=== PATIENT | female | born 1995 | race African-American/Black ===

== ENCOUNTER 2016-09-02 18:10 | Emergency (ER) | payer OTHER ==
--- NOTE | 2016-09-02 18:58 | ERRECORD ---
[facility] EMERGENCY RECORD KNOWN ALLERGIES No Known Drug Allergies (Unconfirmed) CURRENT MEDICATIONS No recorded medications PROBLEM LIST No recorded problems DIAGNOSIS (18:54 JPAR) FINAL: PRIMARY: left without being seen. PRESCRIPTION No recorded prescriptions DISPOSITION (18:54 JPAR) PATIENT: Disposition Type: Eloped, Disposition: Left Without Triage, Patient left the department. Negrete: JPAR=Paramadalberto, RN, Reyes &a-1R&a+25V*p+0X*[id number]*c202B*c15G*c2P*p-0X&a-25V&a+1R Name: Anika Jones : 1995 F21 MedRec: [id number] AcctNum: [id number] Prepared: Rigoberto Sep 02, 2016 18:56 by Interface Page 1 of 1 pMD MTDD
--- NOTE | 2016-09-02 19:01 | PICIS ---
[facility] EMERGENCY RECORD TRIAGE (ThuSep 02, 2016 18:53 JPAR) PATIENT: NAME: Anika Jones, AGE: 21, GENDER: female, : Thu1995, TIME OF GREET: ThuSep 02, 2016 18:11, PREFERRED LANGUAGE: Lao, RACE: Black or , ETHNICITY: Not or , ECODE BILLING MAP: [facility], SSN: [id number], Zip Code: [address], KG WEIGHT: 54.43, PHONE: , , , PERSON ID: [id number], [facility] TRIAGE NOTES: left without being trianged. COMPLAINT: LEFT SIDE JAW AND NECK SWELLING. ADMISSION: URGENCY: Left Before Triage, ADMISSION SOURCE: Home, TRANSPORT: CAR, BED: TRIAGE. PROVIDERS: TRIAGE NURSE: Reyes Schreiber RN. PREVIOUS VISIT ALLERGIES: No Known Drug Allergies. KNOWN ALLERGIES No Known Drug Allergies (Unconfirmed) CURRENT MEDICATIONS No recorded medications HPI GENERAL (ThuSep 03, 2016 00:45 AGRE) CHIEF COMPLAINT: Patient presents for evaluation of PATIENT LEFT WITHOUT TRIAGE. EVENTS TRANSFER: Triage to Emergency Triage. (18:53 JPAR) Removed from Emergency Triage. (18:54 JPAR) PROBLEM LIST No recorded problems DIAGNOSIS (18:54 JPAR) FINAL: PRIMARY: left without being seen. DISPOSITION (18:54 JPAR) PATIENT: Disposition Type: Eloped, Disposition: Left Without Triage, Patient left the department. PRESCRIPTION No recorded prescriptions ADMIN (ThuSep 03, 2016 00:45 AGRE) DIGITAL SIGNATURE: MD Rivera Andrea. Negrete: AGRE=MD Rivera Andrea JPAR=SABRA Schreiber, Reyes &a-1R&a+25V*p+0X*d1527I*c202B*c15G*c2P*p-0X&a-25V&a+1R Name: Anika Jones : 1995 F21 MedRec: [id number] AcctNum: [id number] Prepared: ThuSep 03, 2016 00:53 by Interface Page 1 of 1 pMD MTDD
--- NOTE | 2016-09-03 00:52 | ERRECORD ---
[facility] EMERGENCY RECORD HPI GENERAL (ThuSep 03, 2016 00:45 AGRE) CHIEF COMPLAINT: Patient presents for evaluation of PATIENT LEFT WITHOUT TRIAGE. KNOWN ALLERGIES No Known Drug Allergies (Unconfirmed) CURRENT MEDICATIONS No recorded medications PROBLEM LIST No recorded problems DIAGNOSIS (18:54 JPAR) FINAL: PRIMARY: left without being seen. PRESCRIPTION No recorded prescriptions DISPOSITION (18:54 JPAR) PATIENT: Disposition Type: Eloped, Disposition: Left Without Triage, Patient left the department. Negreet: AGRE=MD Miguel, Andrés UNDERWOOD=Candie, RN, Reyes &a-1R&a+25V*p+0X*n0035R*c202B*c15G*c2P*p-0X&a-25V&a+1R Name: Anika Jones : 1995 F21 MedRec: [id number] AcctNum: [id number] Prepared: ThuSep 03, 2016 00:46 by Interface Page 1 of 1 pMD MTDD
== END 2016-09-02 18:54 | disposition left against medical advice (07) ==
LOC: NAV ERS 18:10
DX: Z53.21 Procedure and treatment not carried out due to patient leaving prior to being seen by health care provider (principal)

== ENCOUNTER 2016-10-14 15:37 | Emergency (ER) | payer OTHER | END 2016-10-14 16:42 | disposition left against medical advice (07) | LOC: NAV ERS 15:37 | DX: Z53.21 Procedure and treatment not carried out due to patient leaving prior to being seen by health care provider (principal) ==

== ENCOUNTER 2016-10-15 10:11 | Emergency (ER) | payer OTHER | END 2016-10-15 11:00 | disposition left against medical advice (07) | LOC: NAV ERS 10:11 | DX: Z53.21 Procedure and treatment not carried out due to patient leaving prior to being seen by health care provider (principal) ==

== ENCOUNTER 2019-06-03 20:20 | Emergency (ER) | payer OTHER, SELFPAY ==
[2019-06-03 20:39] LABS: Bilirubin Small (Negative); Blood, Urine Negative (Negative); Clarity Clear (Clear); Glucose, Urine (Dipstick) Negative (Negative); Leukocyte Trace (Negative); Nitrite Negative (Negative); Protein, Urine (Dipstick) Trace mg/dL (Neg-Trace)
[2019-06-03 20:47] LABS: Specific Gravity 1.025 (1.002-1.036)
[2019-06-03] MEDS ORDERED: Ketorolac Tromethamine 30 MG/ML VIAL ONE (20:48)
[2019-06-03] MEDS ORDERED: Ondansetron PF 4 MG/2 ML Vial ONE (20:48)
[2019-06-03 20:55] LABS: Pregnancy Test - Urine (BHCG) Negative (Negative); Pregu Control Background? CLEAR/WHITE (CLR/WHITE); Pregu Control Bar Appear? YES (CONTROL BAR)
[2019-06-03 20:57] LABS: WBC/HPF 0-3 HPF (0-3)
[2019-06-03 20:58] LABS: Bacteria/HPF None Seen HPF (None Seen); Mucous/LPF 1+ LPF (<2+); RBC/HPF None Seen HPF (0-3)
[2019-06-03 21:22] LABS: ALT (SGPT) 8 U/L (8-55); AST (SGOT) 24 U/L (5-34); Albumin 4.3 g/dL (3.5-5.0); Alkaline Phosphatase 63 U/L (40-110); Anion Gap 14 mmol/L (10-20); BUN (Urea Nitrogen) 5 mg/dL (7.0-18.7); Bilirubin, Total 0.6 mg/dL (0.2-1.2); Calc. Creatinine Clearance 0 mL/min (70-130); Calcium 9.1 mg/dL (7.8-10.44); Carbon Dioxide 23 mmol/L (22-29); Chloride 106 mmol/L (98-107); Estimated GFR-MDRD Greater than 90; Globulin 2.9 g/dL (2.4-3.5); Glucose 101 mg/dL (70-105); Lipase 22 U/L (8-78); Potassium 3.5 mmol/L (3.5-5.1); Protein, Total 7.2 g/dL (6.0-8.3); Sodium 139 mmol/L (136-145)
[2019-06-03 21:28] LABS: Eosinophils 1 % (0-10); Hemoglobin 11.1 g/dL (12.0-16.0); Hypochromia SLIGHT = 6-15 cells (100X) (0-5/hpf); Lymphocytes 50 % (21-51); MDiff Complete? YES; Mean Corpuscular HGB CONC 31.7 g/dL (32.0-36.0); Mean Corpuscular Hemoglobin 31.5 pg (27.0-31.0); Mean Corpuscular Volume 99.1 fL (78.0-98.0); Mean Platelet Volume 9.6 fL (7.4-10.4); Monocytes 5 % (0-10); Neutrophil 42 % (42-75); Platelet Count 116 thou/uL (130-400); Platelet Morphology Comment Appears Decreased; RBC Distribution Width 11.2 % (11.5-14.5); Reactive Lymphocytes 2 % (0-10); Red Blood Cell (RBC) Count 3.54 mill/uL (4.20-5.40); White Blood Cell (WBC) Count 5.3 thou/uL (4.8-10.8)
== END 2019-06-03 21:40 | disposition home or self-care (01) ==
LOC: NAV ERS 20:20
DX: R10.32 Left lower quadrant pain (principal); G40.909 Epilepsy, unspecified, not intractable, without status epilepticus; J45.909 Unspecified asthma, uncomplicated
CPT/HCPCS: 80053; 81003; 81015; 81025; 83690; 85025; 96374; 96375; J1885; J2405

== ENCOUNTER 2020-06-17 20:39 | Emergency (ER) | payer SELFPAY | END 2020-06-18 02:47 | disposition home or self-care (01) | LOC: NAV ERS 20:39 | DX: Z53.21 Procedure and treatment not carried out due to patient leaving prior to being seen by health care provider (principal) ==

== ENCOUNTER 2020-06-18 02:13 | Emergency (ER) | payer SELFPAY ==
[2020-06-18] MEDS ORDERED: Acetaminophen/Codeine 30-300mg Tablet ONE (02:37)
[2020-06-18] MEDS ORDERED: Ibuprofen 200 MG TAB ONE (02:37)
[2020-06-18] MEDS ORDERED: Amoxicillin/Potassium Clav 875 MG TAB ONE (02:37)
== END 2020-06-18 02:47 | disposition home or self-care (01) ==
LOC: NAV ERS 02:13
DX: K03.81 Cracked tooth (principal); R22.0 Localized swelling, mass and lump, head; J45.909 Unspecified asthma, uncomplicated; F17.210 Nicotine dependence, cigarettes, uncomplicated
CPT/HCPCS: 99283

== ENCOUNTER 2020-07-06 00:29 | Emergency (ER) | payer SELFPAY ==
[2020-07-06] MEDS ORDERED: Ketorolac Tromethamine 60 MG/2 ML VIAL ONE (00:51)
[2020-07-06] MEDS ORDERED: Acetaminophen/Codeine 30-300mg Tablet ONE ×2 (00:51→00:59)
== END 2020-07-06 01:17 | disposition home or self-care (01) ==
LOC: NAV ERS 00:29
DX: K03.81 Cracked tooth (principal); K02.9 Dental caries, unspecified; K08.89 Other specified disorders of teeth and supporting structures; J45.909 Unspecified asthma, uncomplicated; F17.210 Nicotine dependence, cigarettes, uncomplicated
CPT/HCPCS: 96372; 99282; J1885

== ENCOUNTER 2020-07-06 02:45 | Emergency (ER) | payer SELFPAY | END 2020-07-06 03:04 | disposition home or self-care (01) | LOC: NAV ERS 02:45 | DX: Z53.21 Procedure and treatment not carried out due to patient leaving prior to being seen by health care provider (principal) ==